=== PATIENT | female | born 2005 | race African-American/Black ===

== ENCOUNTER 2025-04-12 15:28 | Emergency (ER) | payer OTHER, SELFPAY ==
[2025-04-12] VITALS (19 sets, daily range): BP systolic 86–94; BP diastolic 51–62; PULSE 52–65; TEMP 36.7; O2SAT 77–100; BMI 18.3
--- NOTE | 2025-04-12 16:19 | ECG_ITS ---
[facility] Test Date: 2025-04-12 Pat Name: SAVANNA SUMMERS Department: Room: - Gender: Female Mosaicist: : [id number] Requested By: [id number] Order Number: [id number] Reading MD: BERLIN BRISENO M.D. Measurements Intervals Farrell Rate: 54 P: 34 CO: 132 QRS: 85 QRSD: 80 T: 68 QT: 398 QTc: 385 Interpretive Statements 1100 Sinus rhythm 9110 normal ECG No previous ECG available for comparison Electronically Signed On 04-14-2025 6:42:20 EDT by BERLIN BRISENO M.D.
[2025-04-12] MEDS: 0.9 % SODIUM CHLORIDE 1,000 ML 1000 ML IV (16:38)
[2025-04-12 16:42] LABS: Hematocrit 36.2 % (36.0-48.0); Hemoglobin 12.4 g/dL (12.0-16.0); Immature Granulocytes Abs Auto 0.01 10^3/uL (0.00-0.03); Immature Granulocytes Pct Auto 0.2 % (0.0-0.5); Lymphocytes Absolute Auto 2.9 10^3/uL (1.2-3.8); Mean Corpuscular HGB Conc 34.3 g/dL (29.9-35.2); Mean Corpuscular Hemoglobin 29.0 pg (26.7-34.0); Mean Corpuscular Volume 84.8 fL (81.0-99.0); Platelet Count 195 10^3/uL (150-450); Red Blood Count 4.27 10^6/uL (4.20-5.40); White Blood Count 6.6 10^3/uL (4.0-11.0)
[2025-04-12 16:50] LABS: Magnesium 1.9 mg/dL (1.8-2.4)
[2025-04-12 16:55] LABS: Alanine Aminotransferase 28 U/L (14-59); Albumin Globulin Ratio 0.9; Albumin Level 3.4 g/dL (3.4-5.0); Alkaline Phosphatase 93 U/L (46-116); Anion Gap 8.4; Aspartate Amino Transferase 18 U/L (15-37); Blood Urea Nitrogen 7.0 mg/dL (7.0-18.0); Calcium 9.0 mg/dL (8.5-10.1); Carbon Dioxide 30.5 mmol/L (21.0-32.0); Chloride 101 mmol/L (98-107); Estimated GFR (African America >60 (>=60 mL/min/1.73m^2); Estimated GFR (Non-African Ame >60 (>=60 mL/min/1.73m^2); Globulin 3.6 g/dL; Glucose 92 mg/dL (74-106); Sodium 137 mmol/L (136-145); Total Protein 7.0 g/dL (6.4-8.2)
[2025-04-12 16:56] LABS: Glucose Urine UA NEGATIVE (NEGATIVE)
[2025-04-12 17:04] LABS: Potassium 2.9 mmol/L (3.5-5.1)
[2025-04-12 17:06] LABS: Cannabinoid Screen Urine POSITIVE (NEGATIVE)
[2025-04-12 17:07] LABS: Methamphetamines Screen Urine NEGATIVE (NEGATIVE); Tricyclic Antidepressant Urine NEGATIVE (NEGATIVE)
[2025-04-12] MEDS: POTASSIUM BICARBONATE/CIT 25 MEQ TABLET EFF 50 MEQ PO (17:32)
--- NOTE | 2025-04-12 17:33 | ED.GENADUL1 ---
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, the patient apparently was hypotensive and that is why she was getting transferred over here to be evaluated The patient denies any symptoms she just wants to go back and she thinks that the clonidine caused her to be hypotensive Related Data Previous Rx's ?Medication ?Instructions ?Recorded potassium bicarbonate-citric acid 20 meq PO DAILY 3 days #3 ea 04/12/25 20 mEq effervescent tablet Allergies Allergy/AdvReac Type Severity Reaction Status Date / Time No Known Drug Allergies Allergy Verified 04/12/25 15:39 Opioid HPI Opioid Management Most Recent Opioid Data: Ur Phencyclidine Scrn, (NEGATIVE) Negative Today, 16:30 Review of Systems ROS Status of ROS 10 or more systems reviewed and unremarkable except as noted in history and below PFSH PFSH Social History Little interest or pleasure in doing things: not at all Feeling down, depressed, or hopeless: several days Exam Narrative Exam Narrative: Nurses notes and vital signs reviewed and patient is not hypoxic. General: Well-appearing and in no apparent distress. Skin: Warm, dry, no pallor noted. No rash. Head: Normocephalic, atraumatic. Neck: Supple, non-tender. Eye: Pupils are equal, round and EOMI. No scleral icterus. Ears, Nose, Mouth, and Throat: TM are clear, no nasal mucosal hypertrophy. Oral mucosa is moist, no posterior oropharynx erythema, uvula is mid-line Cardiovascular: Regular Rate and Rhythm without murmur, gallop or rub. Respiratory: No accessory muscle use or respiratory distress. Lungs are clear to auscultation, no wheezing, rales or rhonchi Chest Wall: no tenderness Back: No midline thoracic or lumbar vertebral tenderness. No CVA tenderness Musculoskeletal: normal ROM, no calf or popliteal tenderness, no lower extremity edema/swelling GI: Abdomen is soft, non-distended. Normal bowel sounds. No masses appreciated. No tenderness to palpation. No rebound, guarding, or rigidity noted. Neurological: A&O x4. No cranial nerve dysfunction observed. No truncal ataxia. Moves all extremities. Sensation intact. Psychiatric: Cooperative and interactive. Normal mood and affect. Constitutional Vital Signs, click to edit/add: Last Vital Signs Temp 98.1 F 04/12/25 15:40 Pulse 54 L 04/12/25 17:30 Resp 14 04/12/25 17:30 BP 94/62 04/12/25 17:16 Pulse Ox 92 L 04/12/25 17:30 O2 Del Method Room Air 04/12/25 15:40 Course Vital Signs Vital signs: Vital Signs Temperature 98.1 F 04/12/25 15:40 Pulse Rate 63 04/12/25 15:40 Respiratory Rate 16 04/12/25 15:40 Blood Pressure 91/52 04/12/25 15:40 Pulse Oximetry 100 04/12/25 15:40 Oxygen Delivery Method Room Air 04/12/25 15:40 Temperature 98.1 F 04/12/25 15:40 Pulse Rate 54 L 04/12/25 17:30 Respiratory Rate 14 04/12/25 17:30 Blood Pressure 94/62 04/12/25 17:16 Pulse Oximetry 92 L 04/12/25 17:30 Oxygen Delivery Method Room Air 04/12/25 15:40 Medical Decision Making MDM Narrative Medical decision making narrative: The patient EKG showing sinus rhythm with a heart rate of [address] elevation or depression there is no hyporkalemic changes The patient was provided with ibuprofen here in the ER she was 94/62 It was noted that her blood workup showed some hypokalemia with 2.9 potassium with no EKG changes and the patient was provided p.o. potassium here and discharged home with potassium supplement as well Patient right now was not hypotensive in the ER and she was not symptomatic and she was discharged back with instruction to continue hydration Lab Data Labs: Lab Results 04/12/25 04/12/25 Range/Units 15:35 16:30 WBC 6.6 (4.0-11.0) 10^3/uL RBC 4.27 (4.20-5.40) 10^6/uL Hgb 12.4 (12.0-16.0) g/dL Hct 36.2 (36.0-48.0) % MCV 84.8 (81.0-99.0) fL MCH 29.0 (26.7-34.0) pg MCHC 34.3 (29.9-35.2) g/dL RDW 11.9 (11.0-15.0) % Plt Count 195 (150-450) 10^3/uL MPV 10.6 (9.5-13.5) fL Neut % (Auto) 47.1 (43.0-75.0) % Lymph % (Auto) 44.2 (20.5-60.0) % [place] % (Auto) 5.9 (1.7-12.0) % Eos % (Auto) 1.8 (0.9-7.0) % Baso % (Auto) 0.8 (0.2-2.0) % Neut # (Auto) 3.1 (1.4-6.5) 10^3/uL Lymph # (Auto) 2.9 (1.2-3.8) 10^3/uL [place] # (Auto) 0.4 (0.3-0.8) 10^3/uL Eos # (Auto) 0.1 (0.0-0.7) 10^3/uL Baso # (Auto) 0.1 (0.0-0.1) 10^3/uL Abs Immat Gran (auto) 0.01 (0.00-0.03) 10^3/uL Imm/Tot Granulo (auto) 0.2 (0.0-0.5) % Sodium 137 (136-145) mmol/L Potassium 2.9 L* (3.5-5.1) mmol/L Chloride 101 (98-107) mmol/L Carbon Dioxide 30.5 (21.0-32.0) mmol/L Anion Gap 8.4 BUN 7.0 (7.0-18.0) mg/dL Creatinine 0.68 (0.55-1.02) mg/dL Est GFR ( Amer) >60 (>=60 mL/min/1.73m^2) Est GFR (Non-Af Amer) >60 (>=60 mL/min/1.73m^2) BUN/Creatinine Ratio 10.3 Glucose 92 (74-106) mg/dL Calcium 9.0 (8.5-10.1) mg/dL Magnesium 1.9 (1.8-2.4) mg/dL Total Bilirubin 0.2 (0.2-1.0) mg/dL AST 18 (15-37) U/L ALT 28 (14-59) U/L Alkaline Phosphatase 93 (46-116) U/L Total Protein 7.0 (6.4-8.2) g/dL Albumin 3.4 (3.4-5.0) g/dL Globulin 3.6 g/dL Albumin/Globulin Ratio 0.9 Serum HCG, Qual Negative (NEGATIVE) Urine Color Lt. yellow (YELLOW) Urine Clarity Clear (CLEAR) Urine pH 6.0 (5.0-9.0) Ur Specific [place] <=1.005 A (1.005-1.025) Urine Protein Negative (NEG/TRACE) mg/dL Urine Glucose (UA) Negative (NEGATIVE) mg/dL Urine Ketones Negative (NEGATIVE) mg/dL Urine Occult Blood Negative (NEGATIVE) Urine Nitrite Negative (NEGATIVE) Urine Bilirubin Negative (NEGATIVE) Urine Urobilinogen 0.2 (0.2-1.0) EU/dL Ur Leukocyte Esterase Negative (NEGATIVE) Urine Opiates Screen Negative (NEGATIVE) Ur Buprenorphine Scrn Negative (NEGATIVE) Ur Oxycodone Screen Negative (NEGATIVE) Urine Methadone Screen Negative (NEGATIVE) Ur Barbiturates Screen Negative (NEGATIVE) U Tricyclic Antidepress Negative (NEGATIVE) Ur Phencyclidine Scrn Negative (NEGATIVE) Ur Amphetamines Screen Negative (NEGATIVE) U Methamphetamines Scrn Negative (NEGATIVE) U Benzodiazepines Scrn Positive A (NEGATIVE) Urine Cocaine Screen Negative (NEGATIVE) U Cannabinoids Screen Positive A (NEGATIVE) Ethanol Quant <3 mg/dL Discharge Plan Discharge Chief Complaint: Weakness Clinical Impression: Hypotension, Hypokalemia Patient Disposition: Home, Self-Care Time of Disposition Decision: 17:34 Condition: Good Prescriptions / Home Meds: New potassium bicarb-citric acid 20 mEq tablet, effervescent 20 meq PO DAILY 3 Days Qty: 3 0RF Print Language: Sinhala Instructions: Hypokalemia (ED) Referrals: Physician,Non-Staff, MD [Primary Care Provider] - 1 week Discharge Date/Time: 04/12/25 17:55
== END 2025-04-12 17:55 | disposition home or self-care (01) ==
PROVIDERS: Emergency Provider Emergency Medicine
DX: I95.9 Hypotension, unspecified (principal); E87.6 Hypokalemia
CPT/HCPCS: 36415; 80053; 80307; 80320; 81003; 83735; 84703; 85025; 93005; 99285